=== PATIENT | female | born 1965 | race Caucasian/White ===

== ENCOUNTER 2017-06-17 16:06 | Emergency (ER) | payer BC ==
[2017-06-17] MEDS: KETOROLAC 30 MG INJ IM (19:19)
[2017-06-17] MEDS: HYDROCODONE/APAP (5/325) TAB PO (19:19)
== END 2017-06-17 19:46 | disposition home or self-care (01) ==
LOC: FTE 16:06
DX: M54.40 Lumbago with sciatica, unspecified side (principal); J45.909 Unspecified asthma, uncomplicated; E11.9 Type 2 diabetes mellitus without complications; Z79.84 Long term (current) use of oral hypoglycemic drugs
CPT/HCPCS: 96372; 99284-25

== ENCOUNTER 2017-11-01 18:59 | Emergency (ER) | payer OTHER, BC ==
[2017-11-01] MEDS: DEXAMETHASONE 10 MG/ML 1 ML INJ IM (20:56)
[2017-11-01] MEDS: KETOROLAC 60 MG INJ IM (20:57)
== END 2017-11-01 21:59 | disposition home or self-care (01) ==
LOC: FTE 18:59
DX: M54.41 Lumbago with sciatica, right side (principal); J45.909 Unspecified asthma, uncomplicated; E11.9 Type 2 diabetes mellitus without complications; Z79.84 Long term (current) use of oral hypoglycemic drugs
CPT/HCPCS: 96372; 99284-25

== ENCOUNTER 2018-01-27 11:04 | Emergency (ER) | payer OTHER ==
[2018-01-27] MEDS: KETOROLAC 60 MG INJ IM (12:14)
== END 2018-01-27 13:51 | disposition home or self-care (01) ==
LOC: FTE 11:04
DX: M79.604 Pain in right leg (principal); J45.909 Unspecified asthma, uncomplicated; E11.9 Type 2 diabetes mellitus without complications; Z79.84 Long term (current) use of oral hypoglycemic drugs
CPT/HCPCS: 73562; 96372; 99284-25

== ENCOUNTER 2018-04-25 16:04 | Emergency (ER) | payer OTHER ==
[2018-04-25] MEDS: KETOROLAC 30 MG INJ IM (17:08)
== END 2018-04-25 17:37 | disposition home or self-care (01) ==
LOC: FTE 16:04
DX: M25.561 Pain in right knee (principal); E11.9 Type 2 diabetes mellitus without complications; J45.909 Unspecified asthma, uncomplicated; Z79.84 Long term (current) use of oral hypoglycemic drugs
CPT/HCPCS: 81025; 96372; 99284-25